=== PATIENT | female | born 1990 | race Caucasian/White ===

== ENCOUNTER 2017-03-04 12:43 | Observation (INO) | payer OTHER ==
[2017-03-04] VITALS (46 sets, daily range): BP systolic 102–147; BP diastolic 53–91; PULSE 66–104; RESP 13–74; Ht 160 cm; Wt 87.8 kg
[~2017-03-04] VITALS: Ht 160 cm; Wt 87.8 kg
[~2017-03-04 12:43] MED LIST: CEFAZOLIN 2 GM/50 ML (PMX) 50 ML IVPB SCH; NEOSTIGMINE 3 MG/3 ML SYRINGE ONE; ROCURONIUM 50 MG INJ ONE; SUCCINYLCHOLINE CHLORIDE 100 MG/5 ML SYG IV ONE
[2017-03-04] MEDS ORDERED: HYD25 PO (13:36)
[2017-03-04] MEDS ORDERED: CIPR500T4 PO (13:39)
[2017-03-04] MEDS ORDERED: BUPIVACAINE 0.25% (MPF) 30 ML INJ ONE (16:43)
[2017-03-04] MEDS ORDERED: PROPOFOL 20 ML ONE (16:50)
[2017-03-04] MEDS ORDERED: LIDOCAINE 2% (SDV) 5 ML INJ ONE (16:50)
[2017-03-04] MEDS ORDERED: FENTAnyl 50 MCG/ML VIAL ONE (16:50)
[2017-03-04] MEDS ORDERED: MIDAZOLAM 1 MG/ML 2 ML INJ ONE (16:50)
[2017-03-04] MEDS ORDERED: FAMOTIDINE 20 MG INJ ONE (17:01)
[2017-03-04] MEDS ORDERED: DEXAMETHASONE 4 MG/ML 1 ML INJ ONE (17:01)
[2017-03-04] MEDS ORDERED: ONDANSETRON 4 MG INJ ONE (17:01)
[2017-03-04] MEDS ORDERED: CEFAZOLIN 1 GM INJ ONE (17:01)
[2017-03-04] MEDS ORDERED: GLYCOPYRROLATE 1 MG INJ ONE (17:21)
[2017-03-04] MEDS ORDERED: KETOROLAC 30 MG INJ ONE (17:24)
[2017-03-04] MEDS ORDERED: HYDROmorphONE 2 MG/ML SYG ONE (17:25)
[2017-03-04] MEDS ORDERED: HYDROCODONE/APAP (5/325) TAB PO ONE (17:30)
--- NOTE | 2017-03-04 17:30 | OPR ---
Date/Time of Note Date/Time of Note DATE: 03/04/17 TIME: 17:25 Operative Report Procedure Date: Mar 04, 2017 Preoperative Diagnosis symptomatic gallstones and liver steatosis Postoperative Diagnosis same Operation Performed 1. laparoscopic cholecystectomy 2. wedge liver biopsy cpt code 54153 3. therapeutic injection of subcutaneous marcaine cpt code 40622 Track Coach: AIXA GAUTAM MD Anesthesia Type: general Estimated Blood Loss: 0 - 10 ml's Specimens gallbladder wedge liver biopsy Grafts/Implants: none Complications: no Indications This is a 26-year-old female with subsided gallstones and liver steatosis. She requires surgical excision of her gallbladder and liver biopsy. Risks alternatives benefits in personal discussed the patient. Patient expresses understanding consents to the operation. Procedure Description Patient is taken to the OR and prepped and draped in usual sterile fashion. Surgical timeout is performed. IV antibiotics given. Infraumbilical transverse incision is made with a 15 blade. Dissection cautery was carried onto the fascia. The fascia was grasped with Hannah's and divided with curved Medina scissors. 0 Vicryl U stitch was placed into the fascia. Balloon Roes trocar is introduced pneumoperitoneum is established. Midepigastric 12 mm optical trocar was placed under direct visualization right upper quadrant upper flank 5 mm optical trocar trochars were placed under direct visualization. Upon initial inspection there are some adhesions to the gallbladder which were taken down bluntly. Lateral dissection was performed with hook cautery. The gallbladder was then grasped the fundus and retracted laterally and outwardly. The cystic duct was identified a critical view was established. The cystic duct was divided with 3 clips proximal and because of the thickened tissues distally was divided with a 35 mm echelon vascular stapler the cystic artery was divided with 3 clips proximally clipped distal. The gallbladder is taken of the gallbladder bed there is good hemostasis. Attention was then paid to the liver as there is some discoloration wedge liver biopsy was performed using cautery scissors in segment 5. The surgical site was hemostatic. This specimen was retracted through the midepigastric port. Ports removed under direct visualization. 0 Vicryl U stitch was tied down. Skin was closed using skin vicki. Therapeutic subcu times Marcaine was injected throughout the port sites. Dry dressings were applied. Gustavo RIGGS Mar 04, 2017 17:30
[2017-03-04] MEDS ORDERED: HYDROmorphONE (0.2 MG/ML) 10ML SYG IV ONE (17:41)
[2017-03-04] MEDS ORDERED: DIPHENHYDRAMINE 50 MG INJ ONE (17:48)
[2017-03-04] MEDS ORDERED: PROCHLORPERAZINE 10 MG INJ IV PRN (18:00)
[2017-03-04] MEDS ORDERED: FENTAnyl 50 MCG/ML VIAL IV PRN ×3 (18:00)
[2017-03-04] MEDS ORDERED: MEPERIDINE 25 MG INJ IV PRN (18:00)
[2017-03-04] MEDS ORDERED: HYDROmorphONE (0.2 MG/ML) 10ML SYG IV PRN ×3 (18:00)
[2017-03-04] MEDS ORDERED: MIDAZOLAM 1 MG/ML 2 ML INJ IV PRN (18:00)
[2017-03-04] MEDS ORDERED: ONDANSETRON 4 MG INJ IV PRN ×2 (18:00→20:30)
[2017-03-04] MEDS ORDERED: DIPHENHYDRAMINE 50 MG INJ IV PRN (18:00)
[2017-03-04] MEDS ORDERED: OXYCODONE/ACETAMINOPHEN (5/325) TAB PO PRN ×3 (18:00→20:30)
[2017-03-04] MEDS: SOD CHLORIDE 0.9% 1,000 ML IV SCH ×2 (19:20→21:10)
[2017-03-04] MEDS ORDERED: ACETAMINOPHEN 500 MG TAB PO PRN (20:30)
--- NOTE | 2017-03-04 20:34 | HP ---
DATE OF ADMISSION: 03/04/2017 CHIEF COMPLAINT/HISTORY OF PRESENT ILLNESS: The patient is a 26 female with a history of symptomatic gallstone. Patient was brought into the hospital today. Patient was seen by Dr. Meredith as an outpatient and was taken to OR. Patient underwent laparoscopic cholecystectomy and wedge liver biopsy. Patient was initially kept in recovery room for control of pain and symptomatic treatment. Patient, however, continues to have severe pain, and therefore the decision was made to keep her in the hospital. Patient denies any chest pain. No shortness of breath. Patient remains awake, alert, and responsive. Denies any resting leg pain. Patient has a history of slight leg swelling, for which patient was receiving diuretic from her primary care physician, although she denies any history of hypertension. Patient denied any recent history of fever or chills. No recent history of cholecystitis. No history of headache, dizziness, syncope. Other than postoperative pain, the rest of the review of systems were unremarkable. PAST SURGICAL HISTORY: None. ALLERGIES: NONE. SOCIAL HISTORY: No smoking. No alcohol. FAMILY HISTORY: Patient's sister was operated for gallstones. PHYSICAL EXAMINATION: GENERAL: She is awake, alert. VITAL SIGNS: Blood pressure 115/63, pulse 68, respirations 13, O2 sat 100 percent on 2 L, temperature 98.2. HEENT: No eye discharge, drainage. intact. Oropharynx clear. NECK: No mass. CHEST: Fairly clear. CARDIOVASCULAR: S1, S2 normal. No murmur. ABDOMEN: Patient is status post lap duke. EXTREMITIES: No leg edema. NEUROLOGIC: Patient is awake, alert, with no gross focal deficits. LABORATORIES: is negative. IMPRESSION: Status post laparoscopic cholecystectomy and liver wedge biopsy. Patient was admitted on medical floor and will be started on clear liquid diet, which will be advanced as tolerated. Patient will be given IV fluids, Tylenol and IV Dilaudid for pain control. We will use sequential compression devices for deep venous thrombosis prophylaxis. Will continue to follow her. Further evaluation depending upon patient's hospital course. Dictated By: David Hidalgo MD /iván/julieth /Document#: [id number]
[2017-03-04] MEDS: D5W-0.45 NACL + KCL 20 MEQ 1,000 ML IV SCH (22:37)
[2017-03-05] VITALS (8 sets, daily range): BP systolic 111–121; BP diastolic 58–77; RESP 18
[2017-03-05] MEDS: HYDROmorphONE 1 MG/ML SYG IV PRN ×3 (00:54→12:08)
[2017-03-05] MEDS: D5W-0.45 NACL + KCL 20 MEQ 1,000 ML IV SCH ×2 (06:30→09:28)
[2017-03-05 09:42] LABS: BASOPHILS % 0.1 % (0.0-2.0); HEMATOCRIT 33.7 % (37.0-47.0); HEMOGLOBIN 11.3 g/dl (12.0-16.0); LYMPHOCYTES # 1.1 10^3/ul (0.8-2.9); LYMPHOCYTES % 6.7 % (15.0-51.0); MEAN CORPUSCULAR HEMOGLOBIN 27.9 pg (29.0-33.0); MEAN CORPUSCULAR HGB CONC 33.5 g/dl (32.0-37.0); MEAN CORPUSCULAR VOLUME 83.2 fl (82.0-101.0); MEAN PLATELET VOLUME 10.1 fl (7.4-10.4); MONOCYTE # 0.7 10^3/ul (0.3-0.9); MONOCYTES % 4.4 % (0.0-11.0); NEUTROPHILS % 88.3 % (39.0-77.0); PLATELET COUNT 305 10^3/UL (140-415); RED BLOOD COUNT 4.05 10^6/ul (4.20-5.40); WHITE BLOOD COUNT 16.6 10^3/ul (4.8-10.8)
[2017-03-05 10:06] LABS: ALBUMIN 3.9 g/dl (3.3-4.9); ALBUMIN/GLOBULIN RATIO 1.21; BILIRUBIN,INDIRECT 0.6 mg/dl (0-1.1); BILIRUBIN,TOTAL 0.6 mg/dl (0.2-1.3); CALCIUM 9.1 mg/dl (8.4-10.2); CREATININE 0.51 mg/dl (0.44-1.00); TOTAL PROTEIN 7.1 g/dl (6.1-8.1)
--- NOTE | 2017-03-05 10:23 | PN ---
Date/Time of Note Date/Time of Note DATE: 03/05/17 TIME: 10:22 Assessment/Plan VTE Prophylaxis VTE Prophylaxis Intervention: SCD's Lines/Catheters IV Catheter Type (from Nrsg): Peripheral IV Assessment/Plan Chief Complaint/Hosp Course s/p lap duke and wedge liver biopsy Problems: Assessment/Plan doing well ok to dc home and f/u 2 weeks Subjective 24 Hr Interval Summary Free Text/Dictation doing well, stayed overnight for pain control Exam/Review of Systems Vital Signs Vitals Vital Signs Date Time Temp Pulse Resp B/P Pulse Ox O2 Delivery O2 Flow Rate FiO2 03/05/17 08:24 98.9 70 18 118/72 97 03/04/17 20:43 2.0 03/04/17 20:02 Nasal Cannula Intake and Output 03/04/17 03/04/17 03/05/17 15:00 23:00 07:00 Intake Total 900 ml 922 ml Output Total 860 ml 700 ml Balance 40 ml 222 ml Exam dressings intact Results Result Diagram: 03/05/1719 03/05/17 0919 Results 24 hrs Laboratory Tests Test 03/05/17 07:37 03/05/17 09:19 Lab Scanned Report LAB White Blood Count 16.6 H Red Blood Count 4.05 L Hemoglobin 11.3 L Hematocrit 33.7 L Mean Corpuscular Volume 83.2 Mean Corpuscular Hemoglobin 27.9 L Mean Corpuscular Hemoglobin Concent 33.5 Red Cell Distribution Width 13.0 Platelet Count 305 Mean Platelet Volume 10.1 Neutrophils % 88.3 H Lymphocytes % 6.7 L Monocytes % 4.4 Eosinophils % 0.0 Basophils % 0.1 Nucleated Red Blood Cells % 0.0 Neutrophils # (Manual) 14.7 H Lymphocytes # 1.1 Monocytes # 0.7 Eosinophils # 0.0 Basophils # 0.0 Nucleated Red Blood Cells # 0.0 Sodium Level 138 Potassium Level 4.0 Chloride Level 101 Carbon Dioxide Level 27 Anion Gap 14 Blood Urea Nitrogen 7 Creatinine 0.51 Glucose Level 161 Calcium Level 9.1 Total Bilirubin 0.6 Direct Bilirubin 0.00 Indirect Bilirubin 0.6 Aspartate Amino Transf (AST/SGOT) 121 H Alanine Aminotransferase (ALT/SGPT) 65 Alkaline Phosphatase 47 Total Protein 7.1 Albumin 3.9 Globulin 3.20 Albumin/Globulin Ratio 1.21 Medications Medications Current Medications Potassium Chloride/Dextrose/ Sod Cl (D5-1/2ns + KCl 20 Meq) 1,000 ml @ 100 mls/ hr Q10H IV Last administered on 03/05/17 09:28; Admin Dose 100 MLS/HR; Start at 20:30 Acetaminophen (Tylenol Tab) 500 mg Q4H PRN PO PAIN AND OR ELEVATED TEMP; Start 03/04/17 at 20:30 Oxycodone/ Acetaminophen (Percocet (5/ 325)) 1 tab Q4H PRN PO PAIN; Start 03/04 at 20:30 Hydromorphone HCl (Dilaudid) 1 mg Q4H PRN IV PAIN Last administered on 04:41; Admin Dose 1 MG; Start 03/04/17 at 20:30 Ondansetron HCl (Zofran Inj) 4 mg Q4H PRN IV NAUSEA AND/OR VOMITING; Start at 20:30 Gustavo RIGGS Mar 05, 2017 10:23
--- NOTE | 2017-03-05 11:35 | PN ---
Date/Time of Note Date/Time of Note DATE: 03/05/17 TIME: 11:17 Assessment/Plan VTE Prophylaxis VTE Prophylaxis Intervention: ambulation Lines/Catheters [facility] Peripheral IV Assessment/Plan Assessment/Plan 26 yo female with: 1. Symptomatic gallstone disease and liver steatosis, POD#1 s/p laparoscopy cholecystectomy, wedge biopsy of liver Patient doing well, tolerating p.o., ambulating, per general surgery can be discharged home today. Following up with Dr. Meredith in 1 week. Disposition: Discharge home today. Subjective 24 Hr Interval Summary Free Text/Dictation Patient doing well postoperatively, she will be discharged home today with outpatient follow-up with general surgery Exam/Review of Systems Vital Signs Vitals Vital Signs Date Time Temp Pulse Resp B/P Pulse Ox O2 Delivery O2 Flow Rate FiO2 03/05/17 08:24 98.9 70 18 118/72 97 03/04/17 20:43 2.0 03/04/17 20:02 Nasal Cannula Intake and Output 03/04/17 03/04/17 03/05/17 15:00 23:00 07:00 Intake Total 900 ml 922 ml Output Total 860 ml 700 ml Balance 40 ml 222 ml Exam Constitutional: alert, oriented, well developed Respiratory: clear to auscultation, normal air movement Cardiovascular: nl pulses, regular rate and rhythm Gastrointestinal: soft, tender (Mild tenderness at surgical site ) Musculoskeletal: nl extremities to inspection Extremities: normal pulses, other (Edema, clubbing or cyanosis) Neurological: EHS ENGINEER II-XII intact, nl mental status, nl speech, nl strength Results Result Diagram: 03/05/1791803/05/17 0919 Results 24 hrs Laboratory Tests Test 03/05/17 07:37 03/05/17 09:19 Lab Scanned Report LAB White Blood Count 16.6 H Red Blood Count 4.05 L Hemoglobin 11.3 L Hematocrit 33.7 L Mean Corpuscular Volume 83.2 Mean Corpuscular Hemoglobin 27.9 L Mean Corpuscular Hemoglobin Concent 33.5 Red Cell Distribution Width 13.0 Platelet Count 305 Mean Platelet Volume 10.1 Neutrophils % 88.3 H Lymphocytes % 6.7 L Monocytes % 4.4 Eosinophils % 0.0 Basophils % 0.1 Nucleated Red Blood Cells % 0.0 Neutrophils # (Manual) 14.7 H Lymphocytes # 1.1 Monocytes # 0.7 Eosinophils # 0.0 Basophils # 0.0 Nucleated Red Blood Cells # 0.0 Sodium Level 138 Potassium Level 4.0 Chloride Level 101 Carbon Dioxide Level 27 Anion Gap 14 Blood Urea Nitrogen 7 Creatinine 0.51 Glucose Level 161 Calcium Level 9.1 Total Bilirubin 0.6 Direct Bilirubin 0.00 Indirect Bilirubin 0.6 Aspartate Amino Transf (AST/SGOT) 121 H Alanine Aminotransferase (ALT/SGPT) 65 Alkaline Phosphatase 47 Total Protein 7.1 Albumin 3.9 Globulin 3.20 Albumin/Globulin Ratio 1.21 Medications Medications Current Medications Potassium Chloride/Dextrose/ Sod Cl (D5-1/2ns + KCl 20 Meq) 1,000 ml @ 100 mls/ hr Q10H IV Last administered on 03/05/17 09:28; Admin Dose 100 MLS/HR; Start at 20:30 Acetaminophen (Tylenol Tab) 500 mg Q4H PRN PO PAIN AND OR ELEVATED TEMP; Start 03/04/17 at 20:30 Oxycodone/ Acetaminophen (Percocet (5/ 325)) 1 tab Q4H PRN PO PAIN; Start 03/04 at 20:30 Hydromorphone HCl (Dilaudid) 1 mg Q4H PRN IV PAIN Last administered on 04:41; Admin Dose 1 MG; Start 03/04/17 at 20:30 Ondansetron HCl (Zofran Inj) 4 mg Q4H PRN IV NAUSEA AND/OR VOMITING; Start at 20:30 CECELIA GARCIA Mar 05, 2017 11:33
--- NOTE | 2017-03-05 11:36 | PDOCDIS ---
Discharge Instructions CONDITION Patient Condition: Stable HOME CARE INSTRUCTIONS: Diet Instructions: Regular ACTIVITY: Activity Restrictions: Slowly Increase Activity Avoid heavy lifting Do not operate Machinery Do not operate Power Tool Avoid Heavy Housework FOLLOW UP/APPOINTMENTS Follow-up Plan Follow-up with primary care physician within 1 week Follow-up with Dr. Arias next week CECELIA GARCIA Mar 05, 2017 11:36
[2017-03-05] MEDS ORDERED: HYDR-906 PO (11:37)
--- NOTE | 2017-03-12 15:44 | DS ---
Date/Time of Note Date/Time of Note DATE: 03/12/17 TIME: 15:41 Discharge Summary Admission/Discharge Info Admit Date/Time Mar 04, 2017 at 21:10 Discharge Date/Time Mar 05, 2017 at 14:35 Discharge Diagnosis Chronic cholelithiasis Hepatic steatosis Patient Condition: Stable Consults Internal medicine, Dr Garcia Procedures Laparoscopic cholecystectomy Liver wedge biopsy Hx of Present Illness 26 yo female with Symptomatic gallstone disease and liver steatosis, who was brought in for elective laparoscopic cholecystectomy and wedge liver biopsy by Dr. Meredith Hospital Course Patient was doing well on POD#1 s/p laparoscopy cholecystectomy, wedge biopsy of liver. She is tolerating p.o., ambulating, per general surgery can be discharged home today. Home Meds Active Scripts Hydrocodone/Acetaminophen (Cameron 5-325 Tablet) 1 Each Tablet, 1 EACH PO Q6 Y for PAIN, #40 TAB Prov:CECELIA GARCIA 03/05/17 Discontinued Reported Medications Ciprofloxacin Hcl* (Ciprofloxacin Hcl*) 500 Mg Tablet, 500 MG PO BID, #14 TAB STARTED 02-27-17 FOR 7 DAYS 03/04/17 Hydrochlorothiazide* (Hydrochlorothiazide*) 25 Mg Tab, 25 MG PO, #60 TAB 03/04/17 Follow-up Plan Follow-up with Dr. Meredith in 1 week. Follow-up with PCP in 1 week Primary Care Provider Mirtha Leal MD Time spent on discharge: > 30 minutes CECELIA GARCIA Mar 12, 2017 15:44
== END 2017-03-05 14:35 | disposition home or self-care (01) ==
LOC: SDS 12:43 → MS2 21:10
PROVIDERS: ADMIT Internal Medicine; ATTEND Surgery
DX: K80.20 Calculus of gallbladder without cholecystitis without obstruction (principal); K76.0 Fatty (change of) liver, not elsewhere classified
CPT/HCPCS: 47100; 47562; 80053; 85025; 88304; 88307; 88313; 96360; 96361; 96374; 96376; J0690; J1100; J1170; J1200; J1885; J2250; J2405; J2710; J3010; J3480; Z7500; Z7512; Z7610; G0378; J7999